=== PATIENT | female | born 1970 | race Caucasian/White ===

== ENCOUNTER 2022-09-17 14:21 | Outpatient (CLI) | payer OTHER, SELFPAY ==
[2022-09-17 21:36] LABS: Chloride* 102 mmol/L (96-114); Potassium* 3.9 mmol/L (3.6-5.1); Sodium* 139 mmol/L (135-149)
[2022-09-17 21:39] LABS: Creatinine* 0.8 mg/dL (0.5-1.5); Estimated Glomerular Filt Rate 90 ml/min
[2022-09-17 21:40] LABS: Blood Urea Nitrogen* 18 mg/dL (5-24); Calcium* 9.7 mg/dL (8.4-10.6); Carbon Dioxide* 27 mmol/L (20-32); Glucose* 103 mg/dL (60-115)
[2022-09-17 22:43] LABS: Clue Cells No Clue Cells Seen (None Seen); Trichomonas No Trichomonas Seen (None Seen); Yeast No Yeast Seen (None Seen)
== END 2022-09-17 14:22 | disposition home or self-care (01) ==
PROVIDERS: PCP Family Medicine; Visit Provider Nurse Practitioner Family
DX: N89.8 Other specified noninflammatory disorders of vagina (principal); I10 Essential (primary) hypertension; E78.5 Hyperlipidemia, unspecified; R00.0 Tachycardia, unspecified
CPT/HCPCS: 80048; 84443; 87210

== ENCOUNTER 2022-09-21 08:20 | Outpatient (CLI) | payer OTHER, SELFPAY | END 2022-09-21 08:21 | disposition home or self-care (01) | PROVIDERS: PCP Family Medicine; Visit Provider Nurse Practitioner Family | DX: R00.0 Tachycardia, unspecified (principal) | CPT/HCPCS: 93225; 93226 ==

== ENCOUNTER 2024-01-26 15:18 | Outpatient (CLI) | payer OTHER, SELFPAY ==
--- OUTSIDE RECORDS SUMMARY | 2024-01-26 09:37 | XMS_ITS | Clinical Summary ---
Author Name Unknown Organization [employer] Address [address] [address] Phone Care Team Providers Care Student Services Coordinator Name Role Phone Elsewhere, Pcp Primary Care Provider Unavailabl e Allergies Active Allergy Reactions Criticality Noted Date Comments Penicillins RASH Medium 01/15/2018 Medications No known medications Active Problems Problem Noted Date Diagnosed Date Disturbance of skin sensation - R>L arm 04/24/20 13 Social History Tobacco Use Types Packs/Day Years Used Date Smoking Tobacco: Former Smokeless Tobacco: Never Alcohol Use Standard Drinks/Week Comments Not Asked 0 (1 standard drink = 0.6 oz pur e alcohol) Sex and Gender Information Value Date Recorded Sex Assigned at Not on file Gender Identity Not on file Sexual Orientation Not on file Obstetrics History Last Filed Vital Signs Vital Sign Reading Time Taken Comments Blood Pressure 156/99 01/15/2018 9:59 AM CDT Pulse 108 01/15/2018 9:59 AM CDT Temperature 36.6 ??C (97.8 ??F) 01/15/2018 9:59 AM CD T Respiratory Rate 18 01/15/2018 9:59 AM CDT Oxygen Saturation 96% 01/15/2018 9:59 AM CDT Inhaled Oxygen Concentration - - Weight 83.9 kg (185 lb) 01/15/2018 9:59 AM CDT Height 172.7 cm (5' 8) 01/15/2018 9:59 AM CDT Body Mass Index 28.13 01/15/2018 9:59 AM CDT Plan of Treatment Health Maintenance Due Date Last Done Comments CT Colonography 1972 Cervical Cancer Screening 1972 Cologuard 1972 Colonoscopy 1972 Colorectal Cancer Screening 1972 FIT/FOBT 1972 Hepatitis B Vaccine (Standin g Order) (1 of 3 - 3-dose series) 1972 Last pap w/ HPV Testing 1972 Last pap w/o HPV Testing 1972 MAMMO,SCREEN 1972 Sigmoidoscopy 1972 COVID-19 Vaccine (#1) 03/19/1973 PERTUSSIS (Standing Order) 1991 TETANUS (Standing Order) 1991 Shingrix (Zoster recombinant ) vaccine (Standing Order) (1 of 2) 2022 Influenza Vaccine Seasonal (Standing Order) (#1) 2023 HPV Vaccine (Standing Order) Aged Out No longer eligible based on patient's age to complete this topic Pneumococcal/PCV20 Vaccine: Pediatrics (2-5 yrs) and At-Risk Patients (6-64 yrs) (Standing Order) Aged Out No longer eligible b ased on patient's age to complete this topic Care Teams Student Services Coordinator Relationship Specialty Start Date End Date Elsewhere, Pcp PCP - General 04/24/13
--- OUTSIDE RECORDS SUMMARY | 2024-01-26 09:37 | XMS_ITS | Clinical Summary ---
Author Name Unknown Organization [employer] [facility] Address [place], [place] [address] Care Team Providers Care Tool Distributor Name Role Phone Gerardo Nidia Sirena ALEXANDRE Primary Care Provider [phone] Allergies Active Allergy Reactions Criticality Noted Date Comments Blood-Group Specific Substance 06/14/2010 Pt has a probable passive anti-D due to Rh Immune Globulin given 04/16/2010. Blood product orders may be delayed. Penicillins Rash 12/05/2018 Medications Medication Sig Dispensed Refills Start Date End Date Status melatonin 10 mg tabIndications:Insomni a, unspecified type Take by mouth. 0 06/30/2021 A ctive atorvastatin (LIPITOR) 10 mg tabletIndications:Hype rtriglyceridemia,Essen tial hypertension Take 1 Tablet (10 mg) by mouth once daily. 90 Tablet 3 06/30/2021 Active cyclobenzaprine (FLEXERIL) 10 mg tabletIndications:Musc le spasm Take 1 Tablet (10 mg) by mouth at bedtime if needed for Muscle Spasm. 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 Immunizations Name Administration Dates Next Due COVID-19 vaccine (Moderna 100mcg/0.5mL) PF, MDV 11/18/2020,10/21/2020 Hepatitis B (Adult) 03/23/2014,10/26/2013,2012 Influenza A (H1N1), Inactiva jam (Age >=3 Years) 09/25/2009 Influenza, IIV3 (Age >=3 years) 07/30/20 15,07/29/2014,08/05/2010,2008 Influenza, IIV4 (=>6mos) MDV 07/18/2018 Tdap 06/12/2014 Tuberculin (PPD) 08/30/2007 Family History Medical History Relation Name Comments Good Health Father b 1952 Heart Disease Maternal Aunt 1 valvular di sease Heart Disease Maternal Aunt 2 valvular di sease Stroke Maternal Grandfather Good Health Mother b 1954 Cancer-breast No Family History Relation Name Status Comments Father Maternal Aunt 1 Maternal Aunt 2 Maternal Grandfather Mother Social History Tobacco Use Types Packs/Day Years Used Date Smoking Tobacco: Former Cigarettes Q uit: 10/18/2003 Smokeless Tobacco: Never Tobacco Cessation:Counseling Given: Yes Alcohol Use Standard Drinks/Week Comments Yes 0 (1 standard drink = 0.6 oz pur e alcohol) occas PHQ-2 Answer Date Recorded PHQ-2 TOTAL SCORE 0 06/30/2021 Social Connections Answer Date Recorded Frequency of Communication with Friends and Fami ly Not on file 10/18/2021 Financial Resource Strain Answer Date R ecorded Difficulty of Paying Living Expenses Not on file 10/18/2021 Difficulty of Paying Living Expenses Not on file 10/18/2021 Sex and Gender Information Value Date Recorded Sex Assigned at Not on file Gender Identity Not on file Sexual Orientation Not on file Obstetrics History Para Term AB IAB SAB Ectopic Multiple Livin g Live Births 4 0 0 0 2 1 1 0 0 0 Date Outcome GA Total Labor Labor/2nd/3rd Weight Sex Delivery Anes PTL Dorys A1 A5 Name Cl in IAB 10/06 08 SAB Last Filed Vital Signs Vital Sign Reading Time Taken Comments Blood Pressure 135/84 06/30/2021 11:12 AM CDT Pulse 95 06/30/2021 11:12 AM CDT Temperature 37 ??C (98.6 ??F) 06/30/2021 11:12 AM CDT Respiratory Rate - - Oxygen Saturation 98% 06/30/2021 11:12 AM CDT Inhaled Oxygen Concentration - - Weight 83.1 kg (183 lb 1.6 oz) 06/30/2021 11:12 AM CDT Height 171 cm (5' 7.32) 06/30/2021 11:12 AM CDT Body Mass Index 28.4 06/30/2021 11:12 AM CDT Plan of Treatment Health Maintenance Due Date Last Done Comments Hepatitis C screening for age 18-79 1990 Colonoscopy through age 75 2017 BMI (ht and wt on same day) for age 18+ 06/30/2022 06/30/2021, 12/05/2018 Depression screening for age 12+ 06/30/2022 06/30/2021, 12/05/2018 Mammogram for age 45-75 07/08/2022 07/08/2021 Zoster (shingles) series for age 50+ (1 of 2) 2022 COVID-19 vaccine series (2022- season) 2023 11/18/2020, 10/21/2020 Tetanus booster 06/12/2024 06/12/2014 Influenza for age 50-64 06/18/2024 07/18/20 18, 07/30/2015, 07/29/2014, Additional history exists Pap test for age 21-65 06/30/2026 , 06/30/2021, 10/25/2015, Additional history exists Lipids for age 45-75 07/08/2026 07/08/2021, 04/09/2020, 05/15/2008 HIV for age 15-65 Completed 09/28/2008 Tdap Completed 06/12/2014 Pneumococcal series for age 6-64 Aged Out No longer eligible based on patient's age to complete this topic Procedures Procedure Name Priority Date/Time Associated Diagnosis Comments XR MAMMO BILAT SCREENING Routine 07/08/2021 8:53 AM CDT Visit for screening mammogram LIPID PANEL W REFLEX MEASURED LDL Routine 07/08/2021 8:20 AM CDT Hypertriglyceridemia Essential hypertension HPV THIN PREP Routine 06/30/2021 12:31 PM CDT Screening for cervical cancer ANTI HIV 1/2 Routine 09/28/2008 12:43 PM PERCOLATOR OPERATOR Supervision of Other Normal from Last 3 Months or Most Recently Relevant to Health Maintenance Results * XR MAMMO BILAT SCREENING (07/08/2021 8:53 AM CDT) Anatomical Region Laterality Modality BREASTS, Breast Left, Breast Right Bilateral Mammography Impressions 07/09/2021 3:40 PM CDT ??There is no radiographic evidence for malignancy. ??Recommend annual mammograms. MAMMOGRAM ASSESSMENT: ??ACR 1 Negative PATIENTS: You will also receive a letter with your examination results in an easy to read format. ??If you have questions about your results, please contact your referring provider. Narrative 07/09/2021 3:40 PM CDT For Patients: As a result of the Cures Act, medical imaging exams and procedure reports are released immediately into your electronic medical record. You may view this report before your referring provider. If you have questions, please contact your health care provider. XR MAMMO BILAT SCREENING [[id number]] CLINICAL HISTORY: ??This is an asymptomatic 50 y.o. patient. INDICATION FOR EXAM: Mammogram Screening. TECHNIQUE: CC & MLO views were obtained. ??This study was evaluated with the assistance of Computer-Aided Detection. COMPARISON FILM: Yes 10/24/14 Outside Facility 09/08/13 Outside Facility FINDINGS: ??The breasts are heterogeneously dense, which may obscure small masses. There are no dominant masses, suspicious micro calcifications or areas of architectural distortion. Nidia Carrillo DO MAMMO * (ABNORMAL) LIPID PANEL W REFLEX MEASURED LDL (07/08/2021 8:20 AM CDT) CHOLESTEROL,TOTAL 218(H) 100 - 199 mg/dL 07/08/2021 6:01 PM CDT [facility] TRIGLYCERIDES 150(H) <150 mg/dL 07/08/2021 6:01 PM CDT [facility] HDL CHOLESTEROL 57 >40 mg/dL 6:01 PM CDT [facility] NON-HDL CHOLESTEROL 161(H) <145 mg/dl 07/08/2021 6:01 PM CDT [facility] CHOL/HDL RATIO 3.82 <4.50 07/08/2021 6:01 PM CDT [facility] LDL CHOLESTEROL 131(H) <=130 mg/dL 07/08/2021 6:01 PM CDT [facility] VLDL CHOLESTEROL 30 <=30 mg/dL 07/08/2021 6:01 PM CDT [facility] PROVIDER ORDERED STATUS RANDOM 07/08/2021 6:01 PM CDT [facility] Blood BLOOD SPECIMEN / Unknown Venipuncture / Unknown 07/08/2021 8:20 AM CDT 07/08/2021 8:20 AM CDT Nidia Carrillo DO CHEMISTRY [facility] [address] * HPV HIGH RISK (06/30/2021 12:31 PM CDT) TYPE 16 Negative Negative 07/02/2021 3:20 PM CDT [facility] TYPE 18 Negative Negative 07/02/2021 3:20 PM CDT [facility] OTHER HIGH RISK TYPES Negative Negative 07/02/2021 3:20 PM CDT [facility] Other (Cervical) Non-Blood / Unknown 06/30/2021 12:31 PM CDT 07/01/2021 10:37 AM CDT Narrative [facility] - 07/02/2021 3:20 PM CDT HPV types 16, 18, 31, 33, 35, 39, 45, 51, 52, 56, 58, 59, 66 and 68 DNA were undetectable or below the pre-set threshold. Methodology: Vilma Rishabh 4800 HPV Test Nidia Carrillo DO MICROBIOLOGY [facility] [address] [place] [address], [place] * HIV (09/28/2008 12:43 PM PERCOLATOR OPERATOR) ANTI HIV 1/2 Non-reacti ve [facility] Blood specimen (specimen) BLOOD SPECIMEN / Unknown 09/28/2008 12:43 PM PERCOLATOR OPERATOR 09/28/2008 12:34 PM PERCOLATOR OPERATOR Jody Tran TIP PUNCHER SEND OUTS [facility] INTERNAL ZIP [address] [address] from Last 3 Months or Most Recently Relevant to Health Maintenance Care Teams Tool Distributor Relationship Specialty Start Date End Date Nidia Carrillo DO PCP - General 07/31/09
== END 2024-01-26 15:19 | disposition home or self-care (01) ==
PROVIDERS: PCP Family Medicine; Visit Provider Family Medicine
DX: R73.9 Hyperglycemia, unspecified (principal); E78.5 Hyperlipidemia, unspecified; I10 Essential (primary) hypertension
CPT/HCPCS: 80053; 80061

== ENCOUNTER 2024-05-04 08:08 | Outpatient (CLI) | payer OTHER, SELFPAY ==
--- OUTSIDE RECORDS SUMMARY | 2024-05-04 08:12 | XMS_ITS | Clinical Summary ---
Author Organization [employer] [facility] Address [place], [place] [address] Care Team Providers Care Fund Manager Name Role Phone Nidia Carrillo DO Primary Care Provider Allergies Active Allergy Reactions Criticality Noted Date [...] Dates Next Due COVID-19 vaccine (Moderna 100mcg/0.5mL) RANI JEFF 11/18/2020,10/21/2020 Hepatitis B (Adult) 03/23/2014,10/26/2013,2012 Influenza A [...] Outcome GA Total Labor Labor/2nd/3rd Weight Sex Type Anes PTL Dorys A1 A5 Name Clin IAB 09/2008 SAB Last Filed Vital Signs Vital Sign [...] (1 of 2) 2022 COVID-19 vaccine series ( season) 2023 11/18/2020, 10/21/2020 Tetanus booster 06/12/2024 [...] ANTI HIV 1/2 Routine 09/28/2008 12:43 PM LIBRARY MANAGER Supervision of Other Normal from Last 3 [...] health care provider. XR MAMMO BILAT SCREENING [[id number]] CLINICAL HISTORY: ??This is an asymptomatic 50 [...] calcifications or areas of architectural distortion. Nidia Vigilt DO MAMMO * (ABNORMAL) LIPID PANEL W REFLEX MEASURED LDL (07/08/2021 8:20 AM CDT) CHOLESTEROL,TOTAL 218(H) 100 - 199 mg/dL 07/08/2021 6:01 PM CDT [facility] TRIGLYCERIDES 150(H) <150 mg/dL 07/08/2021 6:01 PM CDT [facility] HDL CHOLESTEROL 57 >40 mg/dL 6:01 PM CDT [facility] NON-HDL CHOLESTEROL 161(H) <145 mg/dl 07/08/2021 6:01 PM CDT [facility] CHOL/HDL RATIO 3.82 <4.50 07/08/2021 6:01 PM CDT [facility] LDL CHOLESTEROL 131(H) <=130 mg/dL 07/08/2021 6:01 PM CDT [facility] VLDL CHOLESTEROL 30 <=30 mg/dL 07/08/2021 6:01 PM CDT [facility] PROVIDER ORDERED STATUS RANDOM 07/08/2021 6:01 PM CDT [facility] Blood BLOOD SPECIMEN / Unknown Venipuncture / Unknown 07/08/2021 8:20 AM CDT 07/08/2021 8:20 AM CDT Nidia Carrillo DO CHEMISTRY Performing Organization Address City/[facility]/ZIP Co de Phone Number [facility] [address] [place] [address], * HPV HIGH RISK (06/30/2021 12:31 PM CDT) TYPE 16 Negative Negative 07/02/2021 3:20 PM CDT [facility] TYPE 18 Negative Negative 07/02/2021 3:20 PM CDT [facility] OTHER HIGH RISK TYPES Negative Negative 07/02/2021 3:20 PM CDT [facility] Other (Cervical) Non-Blood / Unknown 06/30/2021 12:31 PM CDT 07/01/2021 10:37 AM CDT Narrative [facility] - 07/02/2021 3:20 PM CDT HPV types 16, 18, 31, 33, 35, 39, 45, 51, 52, 56, 58, 59, 66 and 68 DNA were undetectable or below the pre-set threshold. Methodology: Vilma Rishabh 4800 HPV Test Nidia Carrillo DO MICROBIOLOGY [facility] [address] [place] [address], [place] * HIV (09/28/2008 12:43 PM LIBRARY MANAGER) ANTI HIV 1/2 Non-reacti ve [facility] Blood specimen (specimen) BLOOD SPECIMEN / Unknown 09/28/2008 12:43 PM LIBRARY MANAGER 09/28/2008 12:34 PM LIBRARY MANAGER Jody Tran AUTOMOTIVE PARTS PERSON SEND OUTS [facility] INTERNAL ZIP [address] [address] from Last 3 Months or Most Recently Relevant to Health Maintenance Care Teams Fund Manager Relationship Specialty Start Date End Date Nidia Carrillo DO PCP - General 07/31/09
--- OUTSIDE RECORDS SUMMARY | 2024-05-04 08:12 | XMS_ITS | Clinical Summary ---
Author Organization [facility] Address [address] [address] Phone Care Team Providers Care Clamp Operator Name Role Phone Elsewhere, Pcp Primary Care [...] 1972 Colorectal Cancer Screening 1972 FIT/FOBT 1972 Last pap w/ HPV Testing 1972 Last pap w/o HPV Testing 1972 MAMMO,SCREEN 1972 Sigmoidoscopy 1972 Hepatitis B Vaccine (Standin g Order) (1 of 3 - 19+ 3-dose series) 1991 PERTUSSIS (Standing Order) 1991 TETANUS (Standing Order) 1991 Shingrix (Zoster recombinant ) vaccine (Standing Order) (1 of 2) 2022 Influenza Vaccine Seasonal (Standing Order) (Season Ended) 2024 HPV Vaccine (Standing Order) Aged Out No longer eligible based on patient's age to complete this topic Pneumococcal/PCV20 Vaccine: Pediatrics (2-5 yrs) and At-Risk Patients (6-64 yrs) (Standing Order) Aged Out No longer eligible b ased on patient's age to complete this topic Care Teams Clamp Operator Relationship Specialty Start Date End Date Elsewhere, Pcp PCP - General 04/24/13
--- NOTE | 2024-05-04 08:15 | CRLHL7_ITS ---
For Patients: As a result of the Century Cures Act, medical imaging exams and procedure reports are released immediately into your electronic medical record. You may view this report before your referring provider. If you have questions, please contact your health care provider. BILATERAL DIGITAL SCREENING MAMMOGRAM WITH COMPUTER-AIDED DETECTION AND TOMOSYNTHESIS CLINICAL HISTORY: Routine screening exam. COMPARISON: 07/08/2021. TECHNIQUE: Digital mammogram in CC and MLO projections including computer-aided detection (CAD). Tomosynthesis was used in this interpretation. BREAST COMPOSITION: The breasts are heterogeneously dense, which may obscure small masses. FINDINGS: RIGHT Breast: No suspicious findings. LEFT Breast: Focal asymmetric density upper outer quadrant 7 cm from the nipple. IMPRESSION: LEFT breast asymmetry/mass. RECOMMENDATIONS: Additional mammographic views of the LEFT breast including 3D spot compression CC/MLO. LEFT breast ultrasound may also be required. BI-RADS Category 0: Incomplete: Need Additional Imaging Evaluation and/or Prior Mammograms for Comparison [facility] will contact the patient for follow-up. A lay language report of this examination will be provided to the patient Dictated by Robby Owens MD @ 05/08/2024 9:09:29 AM j/Dictated by: Robby Owens MD @ 05/08/2024 9:09:00 AM (Electronically Signed)
== END 2024-05-04 08:09 | disposition home or self-care (01) ==
LOC: MAMMO 08:09
PROVIDERS: PCP Family Medicine; Visit Provider Family Medicine
DX: Z12.31 Encounter for screening mammogram for malignant neoplasm of breast (principal); N63.20 Unspecified lump in the left breast, unspecified quadrant; R92.2 Inconclusive mammogram
CPT/HCPCS: 77063; 77067

== ENCOUNTER 2024-05-04 10:21 | Outpatient (REF) | payer OTHER, SELFPAY ==
--- OUTSIDE RECORDS SUMMARY | 2024-05-04 10:23 | XMS_ITS | Clinical Summary ---
Author Organization [employer] [facility] Address [place], [place] [address] Care Team Providers Care Hydroelectric Plant Electrical Engineer Name Role Phone Nidia Carrillo DO Primary [...] ANTI HIV 1/2 Routine 09/28/2008 12:43 PM SHIRT HEMMER Supervision of Other Normal from Last 3 [...] health care provider. XR MAMMO BILAT SCREENING [[id number]] CLINICAL HISTORY: ??This is an asymptomatic 50 [...] - 199 mg/dL 07/08/2021 6:01 PM CDT [facility] TRIGLYCERIDES 150(H) <150 mg/dL 07/08/2021 6:01 PM CDT [facility] HDL CHOLESTEROL 57 >40 mg/dL 6:01 PM CDT [facility] NON-HDL CHOLESTEROL 161(H) <145 mg/dl 07/08/2021 6:01 PM CDT [facility] CHOL/HDL RATIO 3.82 <4.50 07/08/2021 6:01 PM CDT [facility] LDL CHOLESTEROL 131(H) <=130 mg/dL 07/08/2021 6:01 PM CDT [facility] VLDL CHOLESTEROL 30 <=30 mg/dL 07/08/2021 6:01 PM CDT [facility] PROVIDER ORDERED STATUS RANDOM 07/08/2021 6:01 PM CDT [facility] Blood BLOOD SPECIMEN / Unknown Venipuncture / Unknown 07/08/2021 8:20 AM CDT 07/08/2021 8:20 AM CDT Nidia Carrillo DO CHEMISTRY Performing Organization Address City/[facility]/ZIP Co de Phone Number [facility] [address] [place] [address], * HPV HIGH RISK (06/30/2021 12:31 PM CDT) TYPE 16 Negative Negative 07/02/2021 3:20 PM CDT [facility] TYPE 18 Negative Negative 07/02/2021 3:20 PM CDT [facility] OTHER HIGH RISK TYPES Negative Negative 07/02/2021 3:20 PM CDT [facility] Other (Cervical) Non-Blood / Unknown 06/30/2021 12:31 PM CDT 07/01/2021 10:37 AM CDT Narrative [facility] - 07/02/2021 3:20 PM CDT HPV types 16, 18, 31, 33, 35, 39, 45, 51, 52, 56, 58, 59, 66 and 68 DNA were undetectable or below the pre-set threshold. Methodology: Vilma Rishabh 4800 HPV Test Nidia Carrillo DO MICROBIOLOGY [facility] [address] [place] [address], [place] * HIV (09/28/2008 12:43 PM SHIRT HEMMER) ANTI HIV 1/2 Non-reacti ve [facility] Blood specimen (specimen) BLOOD SPECIMEN / Unknown 09/28/2008 12:43 PM SHIRT HEMMER 09/28/2008 12:34 PM SHIRT HEMMER Jody Tran ACCOUNT CLERK SEND OUTS [facility] INTERNAL ZIP [address] [address] from Last 3 Months or Most Recently Relevant to Health Maintenance Care Teams Hydroelectric Plant Electrical Engineer Relationship Specialty Start Date End Date Nidia Carrillo DO PCP - General 07/31/09
--- OUTSIDE RECORDS SUMMARY | 2024-05-04 10:23 | XMS_ITS | Clinical Summary ---
Author Organization [facility] Address [address] [address] Phone Care Team Providers Care Soa Integration Architect Name Role Phone Elsewhere, Pcp Primary Care [...] age to complete this topic Care Teams Soa Integration Architect Relationship Specialty Start Date End Date Elsewhere, Pcp PCP - General 04/24/13
[2024-05-04 13:26] LABS: Basophils Absolute Auto 0.05 K/uL (0.00-0.30); Basophils Percent Auto 0.9 % (0.0-3.0); Eosinophils Absolute Auto 0.12 K/uL (0.00-0.50); Eosinophils Percent Auto 2.1 % (0.0-7.0); Hematocrit 41.6 % (33.0-51.0); Hemoglobin* 13.8 gm/dL (12.0-16.0); Immature Granulocytes Abs Auto 0.01 K/uL (0.00-0.30); Immature Granulocytes Pct Auto 0.2 %; Lymphocytes Absolute Auto 2.25 K/uL (0.90-2.90); Lymphocytes Percent Auto 39.3 % (20-44); Mean Corpuscular HGB Conc 33 gm/dL (32-36); Mean Corpuscular Hemoglobin 32 pg (26-34); Mean Corpuscular Volume 96 fL (80-100); Monocytes Percent Auto 8.4 % (0.0-11.0); Neutrophils Absolute Auto 2.81 K/uL (1.7-7.0); Neutrophils Percent Auto 49.1 % (42.0-72.0); Platelet Count* 175 K/uL (140-440); Red Blood Count 4.33 m/uL (4.00-5.20); White Blood Count* 5.72 K/uL (4.50-11.00)
[2024-05-04 13:27] LABS: Albumin* 4.8 g/dL (3.3-5.0); Chloride* 104 mmol/L (96-114)
[2024-05-04 13:28] LABS: Potassium* 4.4 mmol/L (3.6-5.1); Sodium* 139 mmol/L (135-149)
[2024-05-04 13:30] LABS: Alkaline Phosphatase* 69 U/L (40-150); Anion Gap 9 mEq/L (7-15); Aspartate Amino Transferase* 27 U/L (12-35); Bilirubin Total* 0.4 mg/dL (0.1-1.5); Carbon Dioxide* 26 mmol/L (20-32); Creatinine* 0.7 mg/dL (0.5-1.5); Estimated Glomerular Filt Rate 105 ml/min; Total Protein* 7.6 g/dL (6.0-8.3)
[2024-05-04 13:31] LABS: Alanine Aminotransferase* 26 U/L (4-35); Blood Urea Nitrogen* 19 mg/dL (7-30); Glucose* 123 mg/dL (60-115)
[2024-05-04 13:38] LABS: Slide Review Reflex No
[2024-05-04 13:42] LABS: Hemoglobin A1C* 5.9 % (0-5.6); PTH Intact* 39.9 pg/mL (14.2-75.2)
[2024-05-04 14:20] LABS: Vitamin B12* 348 pg/mL (243-894)
[2024-05-04 14:21] LABS: Erythrocyte SedimentationRate* 3 mm/hr (2-20)
[2024-05-05 09:09] LABS: Folate, Serum >22.3 ng/mL (>=5.9)
[2024-05-06 00:24] LABS: Antinuclear Antibody HEp-2,IgG <1:80 (<1:80)
[2024-05-06 15:34] LABS: Vitamin B6 (Pyridoxal 5-Phos) 173.6 nmol/L (20.0-125.0)
== END 2024-05-04 10:22 | disposition home or self-care (01) ==
LOC: NPINS 10:21
PROVIDERS: PCP Family Medicine; Visit Provider Psychiatry & Neurology Neurology
DX: M54.12 Radiculopathy, cervical region (principal); H81.93 Unspecified disorder of vestibular function, bilateral
CPT/HCPCS: 80053; 82607; 82728; 82746; 83036; 83921; 83970; 84207; 84443; 85025; 85651; 86038; 86334

== ENCOUNTER 2024-05-22 08:34 | Outpatient (CLI) | payer OTHER, SELFPAY ==
--- OUTSIDE RECORDS SUMMARY | 2024-05-22 08:36 | XMS_ITS | Clinical Summary ---
Author Organization [employer] [facility] Address [place], [place] [address] Care Team Providers Care Stator Connector Name Role Phone Nidia Carrillo DO Primary [...] ANTI HIV 1/2 Routine 09/28/2008 12:43 PM CASING WORKER Supervision of Other Normal from Last 3 [...] health care provider. XR MAMMO BILAT SCREENING [[id number]] CLINICAL HISTORY: ??This is an asymptomatic 50 [...] - 199 mg/dL 07/08/2021 6:01 PM CDT [facility] TRIGLYCERIDES 150(H) <150 mg/dL 07/08/2021 6:01 PM CDT [facility] HDL CHOLESTEROL 57 >40 mg/dL 6:01 PM CDT [facility] NON-HDL CHOLESTEROL 161(H) <145 mg/dl 07/08/2021 6:01 PM CDT [facility] CHOL/HDL RATIO 3.82 <4.50 07/08/2021 6:01 PM CDT [facility] LDL CHOLESTEROL 131(H) <=130 mg/dL 07/08/2021 6:01 PM CDT [facility] VLDL CHOLESTEROL 30 <=30 mg/dL 07/08/2021 6:01 PM CDT [facility] PROVIDER ORDERED STATUS RANDOM 07/08/2021 6:01 PM CDT [facility] Blood BLOOD SPECIMEN / Unknown Venipuncture / Unknown 07/08/2021 8:20 AM CDT 07/08/2021 8:20 AM CDT Nidia Carrillo DO CHEMISTRY Performing Organization Address City/[facility]/ZIP Co de Phone Number [facility] [address] [place] [address], * HPV HIGH RISK (06/30/2021 12:31 PM CDT) TYPE 16 Negative Negative 07/02/2021 3:20 PM CDT [facility] TYPE 18 Negative Negative 07/02/2021 3:20 PM CDT [facility] OTHER HIGH RISK TYPES Negative Negative 07/02/2021 3:20 PM CDT [facility] Other (Cervical) Non-Blood / Unknown 06/30/2021 12:31 PM CDT 07/01/2021 10:37 AM CDT Narrative [facility] - 07/02/2021 3:20 PM CDT HPV types 16, 18, 31, 33, 35, 39, 45, 51, 52, 56, 58, 59, 66 and 68 DNA were undetectable or below the pre-set threshold. Methodology: Vilma Rishabh 4800 HPV Test Nidia Carrillo DO MICROBIOLOGY [facility] [address] [place] [address], [place] * HIV (09/28/2008 12:43 PM CASING WORKER) ANTI HIV 1/2 Non-reacti ve [facility] Blood specimen (specimen) BLOOD SPECIMEN / Unknown 09/28/2008 12:43 PM CASING WORKER 09/28/2008 12:34 PM CASING WORKER Jody Tran WELDING SETTER SEND OUTS [facility] INTERNAL ZIP [address] [address] from Last 3 Months or Most Recently Relevant to Health Maintenance Care Teams Stator Connector Relationship Specialty Start Date End Date Nidia Carrillo DO PCP - General 07/31/09
--- OUTSIDE RECORDS SUMMARY | 2024-05-22 08:36 | XMS_ITS | Clinical Summary ---
Author Organization [facility] Address [address] [address] Phone Care Team Providers Care Children'S Literature Professor Name Role Phone Elsewhere, Pcp Primary Care [...] 2022 Influenza Vaccine Seasonal (Standing Order) (#1) 2024 HPV Vaccine (Standing Order) Aged Out No longer eligible based on patient's age to complete this topic Pneumococcal/PCV20 Vaccine: Pediatrics (2-5 yrs) and At-Risk Patients (6-64 yrs) (Standing Order) Aged Out No longer eligible b ased on patient's age to complete this topic Care Teams Children'S Literature Professor Relationship Specialty Start Date End Date Elsewhere, Pcp PCP - General 04/24/13
--- NOTE | 2024-05-22 08:45 | CRLHL7_ITS ---
For Patients: As a result of the Cures Act, medical imaging exams and procedure reports are released immediately into your electronic medical record. You may view this report before your referring provider. If you have questions, please contact your health care provider. DIGITAL DIAGNOSTIC LEFT MAMMOGRAM USING TOMOSYNTHESIS AND COMPUTER-AIDED DETECTION LEFT BREAST ULTRASOUND CLINICAL HISTORY: LEFT breast mass/asymmetry. COMPARISON: 05/04/2024. TECHNIQUE: Digital LEFT mammogram in two projections with computer-aided detection. Tomosynthesis utilized. Real-time ultrasound imaging of LEFT breast with imaging documentation. BREAST COMPOSITION: The breast is heterogeneously dense, which may obscure small masses. FINDINGS: 3D spot compression CC/MLO LEFT breast mammogram images submitted. Decreased conspicuity of previously noted asymmetric density. No architectural distortion or suspicious calcifications. Targeted LEFT breast ultrasound performed at 6 o`clock 7 cm from the nipple. Clustered microcysts noted measuring 6 x 4 x 4 millimeters at mid depth. IMPRESSION: Benign clustered microcysts LEFT breast 6 o`clock 7 cm from the nipple measuring 6 millimeters. No evidence of malignancy. No suspicious findings. RECOMMENDATIONS: Annual bilateral screening mammography. Results and recommendations discussed with the patient. BI-RADS Category 2: Benign A lay language report of this examination will be provided to the patient. Dictated by Robby Owens MD @ 05/22/2024 9:19:54 AM j/Dictated by: Robby Owens MD @ 05/22/2024 9:19:00 AM (Electronically Signed)
--- NOTE | 2024-05-22 09:15 | CRLHL7_ITS ---
For Patients: As a result of the Cures Act, medical imaging exams and procedure reports are released immediately into your electronic medical record. You may view this report before your referring provider. If you have questions, please contact your health care provider. PLEASE SEE DIGITAL DIAGNOSTIC LEFT MAMMOGRAM PERFORMED SAME DAY CRL:anne [email or web address]/Dictated by: Robby Owens MD @ 05/22/2024 9:19:00 AM (Electronically Signed)
== END 2024-05-22 08:35 | disposition home or self-care (01) ==
LOC: MAMMO 08:34
PROVIDERS: PCP Family Medicine; Visit Provider Family Medicine
DX: N63.20 Unspecified lump in the left breast, unspecified quadrant (principal); N60.02 Solitary cyst of left breast; R92.8 Other abnormal and inconclusive findings on diagnostic imaging of breast
CPT/HCPCS: 76642; 77065; G0279